=== PATIENT | male | born 1975 | race Caucasian/White ===

== ENCOUNTER 2017-06-14 10:35 | Emergency (ER) | payer OTHER ==
[2017-06-14 13:24] VITALS: BP 139/86
--- NOTE | 2017-06-14 13:40 | UC ---
General HPI - HPI Summary HPI Summary: 41 yo gentleman c/o last 8 to 10 days progressive worse sinus pressure, drainage , cough. No fever /chills. Cough mild productive yellow (?). No rash. No fever / chills. No sob. No GI issues reported. Tried to "shake it" but not getting better. - History of Current Complaint Chief Complaint: UCRespiratory Stated Complaint: SINUS Time Seen by Provider: 06/14/17 13:20 Hx Obtained From: Patient Pain Intensity: 0 - Allergy/Home Medications Allergies/Adverse Reactions: Allergies Allergy/AdvReac Type Severity Reaction Status Date / Time No Known Allergies Allergy Verified 06/14/17 13:19 Home Medications: Home Medications Escitalopram Oxalate [Lexapro 10 mg] 10 mg DAILY 06/14/17 [History Confirmed 01/21] PMH/Surg Hx/FS Hx/Imm Hx Previously Healthy: Yes - Surgical History Surgical History: Yes Surgery Procedure, Year, and Place: left knee acl repair 1991 right knee meniscus repair 2004 right knee meniscus repair 2011. August 2016 RIGHT knee - Family History Known Family History: Positive: Hypertension - Social History Alcohol Use: Weekly Substance Use Type: None Smoking Status (MU): Never Smoked Tobacco Review of Systems Constitutional: Fatigue Skin: Negative Eyes: Negative ENT: Nasal Discharge, Sinus Congestion Respiratory: Cough Cardiovascular: Negative Gastrointestinal: Negative Genitourinary: Negative Motor: Negative Neurovascular: Negative Musculoskeletal: Negative Neurological: Negative Psychological: Negative Is Patient Immunocompromised?: No All Other Systems Reviewed And Are Negative: Yes Physical Exam Triage Information Reviewed: Yes Appearance: Well-Nourished - sitting up, conversing easily and appropriately Vital Signs: Initial Vital Signs Temp 97.7 F 06/14/17 13:20 Pulse 62 06/14/17 13:20 Resp 16 06/14/17 13:20 BP 139/86 06/14/17 13:20 Pulse Ox 100 06/14/17 13:20 Vital Signs Reviewed: Yes Eye Exam: Normal ENT: Positive: TM dull - bilat tm hawkins, dull, Other - no erythema, mild edematous uvula (c/w sinus drip and cough) C/o fullness, tenderness bilat maxillary region Neck exam: Normal Neck: Positive: Supple, Nontender Respiratory: Positive: Chest non-tender, No accessory muscle use, Wheezing - bilat basilar exp wheeze breath sounds equal Cardiovascular Exam: Normal Cardiovascular: Positive: RRR, No Murmur, Pulses Normal, Brisk Capillary Refill Abdominal Exam: Normal Abdomen Description: Positive: Nontender Musculoskeletal Exam: Normal - moves all 4 ext's, gait steady Neurological Exam: Normal Psychological Exam: Normal Skin Exam: Normal Course/Dx - Course Course Of Treatment: No new problems while in [facility]. Reviewed coa / tx plan. Questions as posed answered to the best of my ability. Has used inhaler in the past. - Differential Dx - Multi-Symptom Provider Diagnoses: Bronchitis with wheezing Discharge - Discharge Plan Condition: Stable Disposition: HOME Prescriptions: Albuterol HFA INHALER* [Ventolin HFA Inhaler*] 1 - 2 puff INH Q6H PRN #1 mdi PRN Reason: Wheezing Azithromyxin BREANNA (NF) [Z-Breanna (Zithromax) 250 mg tabs #6] 2 tab PO .TODAY, THEN 1 DAILY #6 tab Patient Education Materials: Acute Bronchitis (ED), Bronchospasm (ED) Referrals: Reno Castaneda MD [Primary Care Provider] - Additional Instructions: Follow up Dr Castaneda, per routine. Seek medical assistance for worse or new problems in the meantime.
== END 2017-06-14 13:38 | disposition home or self-care (01) ==
LOC: UCCORT 10:35
DX: J40 Bronchitis, not specified as acute or chronic (principal); R06.2 Wheezing
CPT/HCPCS: 99212; G0463

== ENCOUNTER 2019-03-07 12:05 | Emergency (ER) | payer OTHER ==
[2019-03-07 13:40] VITALS: BP 130/78
--- NOTE | 2019-03-07 14:01 | UC ---
Eye Complaint HPI - HPI Summary HPI Summary: 43-year-old male presents with complaints of left upper eyelid pain and swelling. Patient states his eyelid has been a little tender all week but this morning when he awoke he noticed a red, tender, swollen area to the eyelid. Denies fever, chills, URI symptoms, visual disturbances, eye pain, eye redness or drainage. - History of Current Complaint Chief Complaint: UCEye Stated Complaint: BILATERAL EYE IRRITATION Time Seen by Provider: 03/07/19 13:50 Hx Obtained From: Patient Pain Intensity: 0 - Allergies/Home Medications Allergies/Adverse Reactions: Allergies Allergy/AdvReac Type Severity Reaction Status Date / Time No Known Allergies Allergy Verified 03/07/19 13:35 Home Medications: Home Medications Cetirizine* [ZyrTEC 10 MG TAB*] 10 mg PO ONCE PRN 03/07/19 [History Confirmed ] PMH/Surg Hx/FS Hx/Imm Hx Psychological History: Anxiety, Depression - Surgical History Surgical History: Yes Surgery Procedure, Year, and Place: left knee acl repair 1991 right knee meniscus repair 2004 right knee meniscus repair 2011. August 2016 RIGHT knee ACL - Family History Known Family History: Positive: Hypertension - Social History Occupation: Employed Full-time Lives: With Family Alcohol Use: Occasionally Substance Use Type: None Smoking Status (MU): Former Smoker When Did the Patient Quit Smoking/Using Tobacco: 7 years ago Review of Systems All Other Systems Reviewed And Are Negative: Yes Constitutional: Positive: Negative Skin: Positive: Negative Eyes: Positive: Other - See HPI. Negative: Blurred Vision, Diplopia, Drainage, Eye Redness, Photophobia ENT: Positive: Negative Respiratory: Positive: Negative Cardiovascular: Positive: Negative Gastrointestinal: Positive: Negative Genitourinary: Positive: Negative Musculoskeletal: Positive: Negative Neurological: Positive: Negative Is Patient Immunocompromised?: No Physical Exam - Summary Physical Exam Summary: GENERAL APPEARANCE: Well developed, well nourished, alert and cooperative, and appears to be in no acute distress. EYES: Small erythematous tender nodule of the right upper eyelid. Conjunctiva clear. No drainage. PERRL, EOM intact. Vision is grossly intact. EARS: External auditory canals and tympanic membranes clear, hearing grossly intact. NOSE: No nasal discharge. THROAT: Pharynx normal. No tonsilar inflammation, swelling, exudate, or lesions. Uvula midline. NECK: Neck supple, non-tender without lymphadenopathy. CARDIAC: Normal S1 and S2. No S3, S4 or murmurs. Rhythm is regular. There is no peripheral edema, cyanosis or pallor. Extremities are warm and well perfused. Capillary refill is less than 2 seconds. Peripheral pulses intact. LUNGS: Clear to auscultation without rales, rhonchi, wheezing or diminished breath sounds. ABDOMEN: Positive bowel sounds. Soft, nondistended, nontender. No guarding or rebound. No masses or hepatosplenomegally. MUSKULOSKELETAL: ROM intact to all extremities. No joint erythema or tenderness. Normal muscular development. Normal gait. SKIN: Skin normal color, texture and turgor with no lesions or eruptions. Triage Information Reviewed: Yes Vital Signs: Initial Vital Signs Temp 98 F 03/07/19 13:37 Pulse 59 03/07/19 13:37 Resp 18 03/07/19 13:37 BP 130/78 03/07/19 13:37 Pulse Ox 100 03/07/19 13:37 Vital Signs Reviewed: Yes Eye Complaint Course/Dx - Course Course Of Treatment: 43-year-old male presents with complaints of left upper eyelid pain and swelling. Patient states his eyelid has been a little tender all week but this morning when he awoke he noticed a red, tender, swollen area to the eyelid. Denies fever, chills, URI symptoms, visual disturbances, eye pain, eye redness or drainage. Afebrile. Vital signs stable. Patient had a small erythematous tender nodule of the right upper eyelid consistent with an internal hordeolum. Conjunctiva clear. No drainage. PERRL, EOM intact. Vision is grossly intact. Remainder of exam was unremarkable. Discussed findings with the patient and I' m recommending conservative treatment for an internal hordeolum of the left upper eyelid including [id number] analgesics and warm compresses. He is to follow-up with ophthalmology in 5-7 days if symptoms are not improving. Anticipatory guidance warning symptoms were. The patient. Verbalizes understanding and agrees with plan of care. - Differential Dx/Diagnosis Differential Diagnosis/HQI/PQRI: Conjunctivitis, Foreign Body, Periorbital Cellulitis, Orbital Cellulitis Provider Diagnosis: Internal hordeolum of left eye Discharge ED - Sign-Out/Discharge Documenting (check all that apply): Patient Departure All imaging exams completed and their final reports reviewed: No Studies - Discharge Plan Condition: Stable Disposition: HOME Patient Education Materials: Stye (ED) Referrals: Reno Castaneda MD [Primary Care Provider] - Roman Shaver MD [Medical Doctor] - 3 Days (If symptoms do not improve.) Additional Instructions: The pain and swelling to your left upper eyelid appears to be an internal stye. These typically will resolve on their own in about a week's time. Apply warm moist compress to the eye for 15 minutes at least 4 times a day. Take acetaminophen (Tylenol) or ibuprofen (Advil, Motrin) according to directions as needed for any pain. Follow-up with ophthalmology in 5-7 days if symptoms persist or worsen. Call for an appointment. Seek immediate medical attention if you have severe pain of the eye, visual disturbances, increased swelling around the eye, purulent drainage coming from the eye, or any worsening of symptoms. - Billing Disposition and Condition Condition: STABLE Disposition: Home
== END 2019-03-07 14:25 | disposition home or self-care (01) ==
LOC: UCCORT 12:05
DX: Z87.891 Personal history of nicotine dependence (principal); H00.024 Hordeolum internum left upper eyelid
CPT/HCPCS: 99211; G0463